=== PATIENT | female | born 2000 | race Two or more races ===

== ENCOUNTER 2020-03-17 10:24 | Emergency (ER) | payer MEDICAID ==
[2020-03-17] MEDS ORDERED: NORMAL SALINE 1000 ML 1,000 ML IV PRN (10:48)
--- NOTE | 2020-03-17 10:48 | ER Document Report ---
ED Medical Screen (RME) - General Chief Complaint: Vaginal Bleeding Stated Complaint: VAGINAL BLEEDING,ABDOMINAL PAIN Time Seen by Provider: 03/17/20 10:45 Mode of Arrival: Ambulatory Information source: Patient Notes: This 19-year-old female who had a surgical in November of this year had Deppe placed the same day and has been bleeding since she is got pain cramping nausea and vomiting she states since the procedure. - Related Data Allergies/Adverse Reactions: No Known Allergies Allergy (Unverified 03/17/20 10:46) Physical Exam - Genitourinary Notes: Exam deferred until bed placement.
--- NOTE | 2020-03-17 11:03 | ER Document Report ---
ED GI/ - General Chief Complaint: Vaginal Bleeding Stated Complaint: VAGINAL BLEEDING,ABDOMINAL PAIN Time Seen by Provider: 03/17/20 10:45 Mode of Arrival: Ambulatory Notes: CHIEF COMPLAINT: Vaginal bleeding and pelvic pain HPI: 19-year old female presenting to the emergency department complaining of vaginal bleeding and pelvic pain. Patient states that in November of this year she was living in [place] and became . She believes she was approximately 12 weeks gestation when she had a medical secondary to nausea vomiting issues. Patient states since that time she has had intermittent pelvic pain and heavy vaginal bleeding that is also intermittent in nature. She has been living down here for the last 2 months has not followed with an [facility] for reevaluation since the procedure in November. States they also put an implanted control in the left upper arm ROS: See HPI - all other systems were reviewed and are otherwise negative Constitutional: no fever or recent illness Eyes: no drainage, no blurred vision ENT: no runny nose, no sore throat Cardiovascular: no chest pain Resp: no SOB, no cough GI: no vomiting, no diarrhea, positive pelvic pain : no dysuria, no vaginal discharge, positive vaginal bleeding Integumentary: no rash Allergy: no hives Musculoskeletal: no extremity pain or swelling Neurological: no numbness/tingling, no weakness MEDICATIONS: I agree with the patient medications as charted by the RN. ALLERGIES: I agree with the allergies as charted by the RN. PAST MEDICAL HISTORY/PAST SURGICAL HISTORY: Reviewed and agree as charted by RN. SOCIAL HISTORY: Reviewed and agree as charted by RN. FAMILY HISTORY: No significant familial comorbid conditions directly related to patient complaint EXAM: Reviewed vital signs as charted by RN. CONSTITUTIONAL: Alert and oriented and responds appropriately to questions. Well-appearing; well-nourished HEAD: Normocephalic; atraumatic EYES: PERRL; Conjunctivae clear, sclerae non-icteric ENT: normal nose; no rhinorrhea; moist mucous membranes; pharynx without lesions noted NECK: Supple without meningismus; non-tender; no cervical lymphadenopathy, no masses CARD: RRR; no murmurs, no clicks, no rubs, no gallops; symmetric distal pulses RESP: Normal chest excursion without splinting or tachypnea; breath sounds clear and equal bilaterally; no wheezes, no rhonchi, no rales, pulse oximetry 98% on room air not hypoxic ABD/GI: Normal bowel sounds; non-distended; soft, non-tender, no rebound, no guarding; no palpable organomegaly or masses : Female nurse agricultural services director present. External genitalia normal. No skin lesions noted. Pelvic Exam: No active bleeding. No purulent discharge. Cervix appears mildly friable. No CMT. No lesions or masses. Uterus normal size and non tender. Right/Left adnexa normal size and mildly tender left adnexa. BACK: The back appears normal and is non-tender to palpation, there is no CVA tenderness EXT: Normal ROM in all joints; non-tender to palpation; no cyanosis, no effusion s, no edema SKIN: Normal color for age and race; warm; dry; good turgor; no acute lesions noted NEURO: Moves all extremities equally; Motor and sensory function intact PSYCH: The patient's mood and manner are appropriate. Grooming and personal hygiene are appropriate. MDM: 19-year-old female presenting for heavy vaginal bleeding episodes after [place] medical [place]. Will obtain screening labs, ultrasound to evaluate for retained products. She had an implantable control put in it may be a hormonal issue. - Related Data Allergies/Adverse Reactions: No Known Allergies Allergy (Unverified 03/17/20 10:46) Past Medical History - General Information source: Patient - Social History Smoking Status: Current Every Day Smoker Chew tobacco use (# tins/day): No Frequency of alcohol use: Social Drug Abuse: Marijuana Family History: Reviewed & Not Pertinent Physical Exam - Vital signs Vitals: Temp 97.5 F 03/17/20 10:46 Course - Re-evaluation Re-evalutation: 03/17/20 13:34 Patient's ultrasound did not show retained products. Patient's lab work shows vaginitis but no other acute findings. Will place on Flagyl, refer to [facility] for further follow-up I discussed this at length with the patient verbalizes understanding - Vital Signs Vital signs: Temp Pulse Resp BP Pulse Ox 97.5 F 87 18 117/77 100 03/17/20 10:49 03/17/20 10:49 03/17/20 10:49 03/17/20 10:49 03/17/20 10:49 - Laboratory Result Diagrams: 03/17/20 11:11 03/17/20 11:11 Laboratory results interpreted by me: 03/17/20 03/17/20 03/17/20 11:11 11:11 11:11 RDW 14.2 H Eos % (Auto) 8.2 H Chloride 108 H Ur Leukocyte Esterase MODERATE H Discharge - Discharge Clinical Impression: Abnormal vaginal bleeding, Bacterial vaginitis Condition: Stable Disposition: HOME, SELF-CARE Additional Instructions: It was noticed on your lab work today that you have bacterial vaginitis which is a bacterial vaginal infection. Take the Flagyl to treat this. There did not appear to be retained products of your from November in the uterus on your ultrasound. It may be hormonal in nature causing the vaginal bleeding issues. Follow-up with [facility] for further evaluation call for appointment Prescriptions: Metronidazole [Flagyl 500 mg Tablet] 500 mg PO BID #14 tablet Referrals: PABLITO AVALOS MD [ACTIVE PROVISIONAL STAFF] - Follow up as needed
[2020-03-17 11:33] LABS: ABSOLUTE BASOPHILS # (AUTO) 0.1 10^3/uL (0.0-0.2); ABSOLUTE EOSINOPHILS # (AUTO) 0.6 10^3/uL (0.0-0.6); ABSOLUTE LYMPHOCYTES (AUTO) 2.3 10^3/uL (0.5-4.7); ABSOLUTE MONOCYTES (AUTO) 0.4 10^3/uL (0.1-1.4); ABSOLUTE NEUT (AUTO) 3.9 10^3/uL (1.7-8.2); BASOPHILS % (AUTO) 0.7 % (0-2); EOSINOPHILS % (AUTO) 8.2 % (0-6); HEMATOCRIT 36.1 % (36.0-47.0); LYMPHOCYTES % (AUTO) 31.3 % (13-45); MEAN CORPUSCULAR HEMOGLOBIN 27.6 pg (27.0-33.4); MEAN CORPUSCULAR HGB CONC 33.3 g/dL (32.0-36.0); MEAN CORPUSCULAR VOLUME 83 fl (80-97); MONOCYTES % (AUTO) 5.9 % (3-13); PLATELET COUNT 357 10^3/uL (150-450); RED BLOOD COUNT 4.34 10^6/uL (3.72-5.28); RED CELL DISTRIBUTION WIDTH 14.2 % (11.5-14.0); SEGMENTED NEUTROPHILS % (AUTO) 53.9 % (42-78); TOTAL CELLS COUNTED % (AUTO) 100 %; WHITE BLOOD COUNT 7.3 10^3/uL (4.0-10.5)
[2020-03-17 11:42] LABS: AMORPHOUS SEDIMENT,URINE TRACE /HPF; APPEARANCE,URINE CLOUDY; BILIRUBIN,URINE NEGATIVE (NEGATIVE); COLOR,URINE YELLOW; GLUCOSE, URINE NEGATIVE (NEGATIVE); KETONES,URINE NEGATIVE (NEGATIVE); LEUKOCYTE ESTERASE,URINE MODERATE (NEGATIVE); NITRITE,URINE NEGATIVE (NEGATIVE); PROTEIN,URINE NEGATIVE (NEGATIVE); URINE SPECIFIC GRAVITY 1.027; UROBILINOGEN,URINE NEGATIVE mg/dL (<2.0)
[2020-03-17 11:51] LABS: ALKALINE PHOSPHATASE 66 U/L (50-135); ANION GAP 7 (5-19); ASPARTATE AMINO TRANSFERASE 22 U/L (5-30); BILIRUBIN,TOTAL 0.3 mg/dL (0.2-1.3); BLOOD UREA NITROGEN 11 mg/dL (7-20); CALCIUM 9.2 mg/dL (8.4-10.2); CARBON DIOXIDE 23 mmol/L (22-30); CHLORIDE 108 mmol/L (98-107); GLUCOSE 91 mg/dL (75-110); POTASSIUM 4.3 mmol/L (3.6-5.0); TOTAL PROTEIN 7.2 g/dL (6.3-8.2)
[2020-03-17 11:55] LABS: BACTERIA (WET MOUNT) 3+ BACTERIA SEEN; EPITHELIALS (WET MOUNT) 3+ EPITHELIALS SEEN; T.VAGINALIS (WET MOUNT) NO TRICHOMONAS SEEN; WBCS (WET MOUNT) FEW WBCS SEEN; YEAST (WET MOUNT) NO YEAST SEEN
--- NOTE | 2020-03-17 12:27 | RADIOLOGY REPORT (SQ) ---
EXAM DESCRIPTION: U/S NON OB PEL TV W/DOPPLER IMAGES COMPLETED DATE/TIME: 03/17/2020 12:16 pm REASON FOR STUDY: vag bleed/pelvic pain/ Nov 2019 COMPARISON: None. TECHNIQUE: Dynamic and static grayscale images acquired of the pelvis via transvaginal approach and recorded on PACS. Additional selected color Doppler and spectral images recorded. LIMITATIONS: None. FINDINGS: UTERUS: Contour normal. No mass. ENDOMETRIAL STRIPE: No focal or generalized thickening. No masses. CERVIX: No nabothian cysts. RIGHT OVARY AND DOPPLER: Normal size. No worrisome masses. Normal arterial vascular flow without evid ence for torsion. 2.9 cm unilocular right ovarian cyst, most consistent with a dominant follicle. LEFT OVARY AND DOPPLER: Ovary not visualized. FREE FLUID: None noted. OTHER: No other significant finding. MEASUREMENTS: UTERUS: 6.8 x 3.1 x 5.1 cm ENDOMETRIAL STRIPE: 0.4 cm RIGHT OVARY: 4.8 x 3 x 2.7 cm LEFT OVARY: Not visualized. IMPRESSION: Nonvisualization of the left ovary. No acute pelvic findings. TECHNICAL DOCUMENTATION: JOB ID: [id number] [employer]- All Rights Reserved Rev-01/22 Reading location - IP/workstation name: [email or web address]
[2020-03-17 13:21] LABS: CHLAM PCR NOT DETECTED (NOT DETECT)
[2020-03-17 13:53] VITALS: BP 115/74
== END 2020-03-17 13:52 | disposition home or self-care (01) ==
LOC: ER 10:24
DX: N93.9 Abnormal uterine and vaginal bleeding, unspecified (principal); Z76.0 Encounter for issue of repeat prescription; B96.89 Other specified bacterial agents as the cause of diseases classified elsewhere; R10.2 Pelvic and perineal pain; F17.200 Nicotine dependence, unspecified, uncomplicated; Z98.890 Other specified postprocedural states; Z97.5 Presence of (intrauterine) contraceptive device
CPT/HCPCS: 36415; 76830; 80053; 81001; 84702; 85025; 86850; 86900; 86901; 87210; 87491; 87591; 93976; 99284

== ENCOUNTER → 2020-08-23 | Outpatient (CLI) | payer MEDICAID ==
[2020-08-23 13:07] VITALS: BP 128/78
--- NOTE | 2020-08-23 13:07 | ER RDC ASSESSMENT REPORT ---
Intake - In the Last 14 days Have you traveled outside [place]?: No Have you been in close contact with someone CONFIRMED: Yes Worked in Healthcare?: No - Symptoms Subjective Fever([place] feverish): No Chills: No Muscule Aches: No Runny Nose: Yes Sore Throat: Yes Cough (New or worsening chronic cough): Yes Shortness of breath: No Nausea or Vomiting: No Headache: No Abdominal Pain: No Diarrhea(3 or more loose stools in last 24 hours): No - Do you have any of the following Chronic lung disease: Asthma or emphysema or COPD: No Cystic Fibrosis: No Diabetes: No High Blood Pressure: No Cardiovascular Disease: No Chronic Kidney Disease: No Chronic Liver Disease: No Chronic blood disorder like Sickle Cell Disease: No Weak immune system due to disease or medication: No Neurologic condition that limits movement: No Developmental delay - Moderate to Severe: No Recent (within past 2 weeks) or current : No Morbid Obesity (>100 pounds over ideal weight): No - Objective Temperature: 98.5 F Pulse Rate: 88 Respiratory Rate: 18 Blood Pressure: 128/78 O2 Sat by Pulse Oximetry: 97 Objective: Given above, testing performed: flu strep covid General - General Stated Complaint: cough Time Seen by Provider: 08/23/20 12:45 Mode of Arrival: Ambulatory Information source: Patient - HPI Notes: 19-year-old female presents to [facility] clinic for COVID-19 testing. Patient reports she did have contact with confirmed Covid positive individual approximately 1 week ago. Onset of symptoms 08/21/2020. Patient is reporting dry cough, sore throat, runny nose, diminished taste and smell, and nasal congestion. Denies any fever or chills, muscle aches, GI upset, shortness of breath, or headache. - Related Data Allergies/Adverse Reactions: No Known Allergies Allergy (Unverified 03/17/20 10:46) Past Medical History - General Information source: Patient - Social History Smoking Status: Current Every Day Smoker Cigarette use (# per day): Yes - 4 Family History: Reviewed & Not Pertinent - Past Medical History Cardiac Medical History: Reports: Hx Heart Murmur Pulmonary Medical History: Reports: None EENT Medical History: Reports: None Neurological Medical History: Reports: None Endocrine Medical History: Reports: None Renal/ Medical History: Reports: None Malignancy Medical History: Reports: None GI Medical History: Reports: None Musculoskeletal Medical History: Reports None Skin Medical History: Reports None Psychiatric Medical History: Reports: None Traumatic Medical History: Reports: None Infectious Medical History: Reports: None Past Surgical History: Reports: None Physical Exam - General General appearance: Appears well, Alert In distress: None Notes: PHYSICAL EXAMINATION: GENERAL: Well-appearing and in no acute distress. HEAD: Atraumatic, normocephalic. EYES: sclera anicteric, conjunctiva are normal. ENT: nares patent. Moist mucous membranes. NECK: Normal range of motion, supple without lymphadenopathy. LUNGS: No increased work of breathing. Lung sounds CTAB and equal. No wheezes rales or rhonchi. HEART: Regular rate and rhythm without murmurs. ABDOMEN: Soft, nontender, normal bowel sounds, no guarding. EXTREMITIES: Normal range of motion, no pitting edema. No cyanosis. NEUROLOGICAL: A&O x 3. Normal speech. PSYCH: Normal mood, normal affect. SKIN: Warm, Dry, normal turgor, no rashes or lesions noted Patient Education/Counseling Counseling/Education: Patient presents with symptoms associated with possible Covid 19 infection. Patient does not have emergency worrying symptoms such as difficulty breathing, shortness of breath, chest pain, pressure, confusion or cyanosis. Patient appears suitable for discharge as vital signs are stable and patient is nontoxic in appearance. Good return precautions have been discussed with patient, patient verbalized understanding and is agreeable with discharge plan of care at this time. Guidance for worsening S/SX: As a person under investigation for Covid 19, the [place] department of Health and Human Services, division of public health advises you to adhere to the following guidance until your test results are reported to you. If your test result is positive, you will receive additional information from your provider and your local health department at that time. Remain at home until you are cleared by the health provider or public health authorities. Keep a log of visitors to your home, notify any visitors to your home of your isolation status. If you plan to move to a new address or leave the county, notify the local health department in your County. Call your doctor or seek care if you have an urgent medical need. Before seeking medical care, call ahead to get instructions from the provider before arriving at the medical office clinic or hospital. Notify them that you are being tested for the virus that causes Covid 19 so that arrangements can be made, as necessary, to prevent transmission to others in the healthcare setting. Next, notify the local health department in your county. If a medical emergency arises and you need to call 911, inform the first responders that you are being tested for the virus that causes Covid 19. Next, notify the local health department in your county. RDC Discharge - Discharge Clinical Impression: Encounter for screening laboratory testing for COVID-19 virus Upper respiratory infection Qualifiers: URI type: unspecified URI Qualified Code(s): J06.9 - Acute upper respiratory infection, unspecified Condition: Good Disposition: Home; Selfcare
[2020-08-23 13:47] LABS: A TYPE INFLUENZA AG NEGATIVE (NEGATIVE)
[2020-08-23 13:48] LABS: B INFLUENZA AG NEGATIVE (NEGATIVE)
== END ==
LOC: RDC 11:53
PROVIDERS: ATTEND Registered Nurse
DX: J06.9 Acute upper respiratory infection, unspecified (principal); Z20.828 Contact with and (suspected) exposure to other viral communicable diseases; J02.9 Acute pharyngitis, unspecified; R09.89 Other specified symptoms and signs involving the circulatory and respiratory systems; R05 Cough; R43.8 Other disturbances of smell and taste; F17.210 Nicotine dependence, cigarettes, uncomplicated
CPT/HCPCS: 87070; 87880; 87635; 87804; 99201; 99211; C9803